=== PATIENT | female | born 1955 | race Caucasian/White ===

== ENCOUNTER 2017-03-30 15:52 | Emergency (ER) | payer OTHER ==
[~2017-03-30] VITALS: Ht 157.5 cm; Wt 71.7 kg
[~2017-03-30 15:52] MED LIST: FAMO-12 PO; FLUO60TA PO; GABA-497 PO; GEMF600T3 PO; GLIP10TA59 PO; INSLANTI SC; LIS10T PO; METF-370 PO; OMEP20CA74 PO; OXYB5TAB62 PO; POT10T PO; PRA1C PO; PRAV20TA3 PO; TRAZ50TA2 PO
[2017-03-30] MEDS ORDERED: SODIUM CHLORIDE 0.9% 1,000 ML IV ONE (16:15)
[2017-03-30 17:44] LABS: Basophils # (auto) 0 uL; Basophils % (auto) 0.6 % (0.0-2.0); CONDITION Y; Eosinophils # (auto) 0.1 uL; Eosinophils % (auto) 1.8 % (0.0-7.0); Hematocrit 35.1 % (36.0-46.0); Hemoglobin 12.1 g/dL (12.2-16.2); Lymphocytes # (auto) 2.6 uL; Lymphocytes % (auto) 32.7 % (10.0-50.0); Mean Corpuscular Hemoglobin 31.8 pg (28.0-32.0); Mean Corpuscular Hgb Conc. 34.5 g/dL (32.0-36.0); Mean Corpuscular Volume 92.2 fL (80.0-100.0); Mean Platelet Volume 5.9 fL (7.4-10.4); Monocytes # (auto) 0.6 uL; Monocytes % (auto) 7.5 % (0.0-12.0); Neutrophils # (auto) 4.6 uL; Neutrophils % (auto) 57.4 % (37.0-80.0); Platelet Count (auto) 391 10^3/uL (140-450); Red Cell Distribution Width 12.8 % (11.6-16.0); White Blood Cell 8.1 10^3/uL (4.4-10.8)
[2017-03-30 18:28] LABS: Alkaline Phosphatase 105 U/L (45-117); Anion Gap 10 (5-15); Aspartate Aminotransferase 3 U/L (15-37); BUN/Creatinine Ratio 28.1; Blood Urea Nitrogen 16 mg/dL (7-18); Calcium 8.4 mg/dL (8.5-10.1); Carbon Dioxide 23 mmol/L (21-32); Chloride 100 mmol/L (98-107); GFR African American 139 mL/min; GFR Non-African American 115 mL/min; Glucose 267 mg/dL (74-106); Sodium 133 mmol/L (136-145)
[2017-03-30 18:29] LABS: Albumin 2.7 g/dL (3.4-5.0); Bilirubin, Total 0.3 mg/dL (0.2-1.0); Total Protein 7.2 g/dL (6.4-8.2)
[2017-03-31 01:53] VITALS: BP 145/72
[2017-03-31] MEDS ORDERED: HYDROcodone-ACET 5/325MG TAB PO ONE (02:00)
== END 2017-03-31 03:41 | disposition home or self-care (01) ==
LOC: EDUNIT# 15:52 → ER 15:59
DX: S29.011A Strain of muscle and tendon of front wall of thorax, initial encounter (principal); E11.9 Type 2 diabetes mellitus without complications; K21.9 Gastro-esophageal reflux disease without esophagitis; E78.5 Hyperlipidemia, unspecified; Z90.49 Acquired absence of other specified parts of digestive tract; W18.39XA Other fall on same level, initial encounter; Y93.89 Activity, other specified; Y92.89 Other specified places as the place of occurrence of the external cause; Y99.8 Other external cause status; Z88.8 Allergy status to other drugs, medicaments and biological substances; Z79.899 Other long term (current) drug therapy
CPT/HCPCS: 36415; 71010; 80053; 82962; 84484; 85025; 93005; 96360; 99285; J7030

== ENCOUNTER 2017-11-10 21:25 | Emergency (ER) | payer MEDICAID, OTHER ==
[~2017-11-10] VITALS: Ht 162.6 cm; Wt 90.7 kg
[~2017-11-10 21:25] MED LIST changes: -GABA-497 PO; +GABA300C10 PO
[2017-11-10 22:19] LABS: Basophils # (auto) 0 uL; Basophils % (auto) 0.5 % (0.0-2.0); Eosinophils # (auto) 0 uL; Eosinophils % (auto) 0.6 % (0.0-7.0); Hematocrit 38.2 % (36.0-46.0); Hemoglobin 13.3 g/dL (12.2-16.2); Lymphocytes # (auto) 1.2 uL; Lymphocytes % (auto) 13.9 % (10.0-50.0); Mean Corpuscular Hemoglobin 31.1 pg (28.0-32.0); Mean Corpuscular Hgb Conc. 34.8 g/dL (32.0-36.0); Mean Corpuscular Volume 89.5 fL (80.0-100.0); Monocytes # (auto) 0.6 uL; Monocytes % (auto) 6.8 % (0.0-12.0); Neutrophils # (auto) 6.7 uL; Neutrophils % (auto) 78.2 % (37.0-80.0); Nucleated Red Blood Cells % 0.2 %; Platelet Count (auto) 236 10^3/uL (140-450); Red Blood Cells 4.26 10^6/uL (4.0-5.20); Red Cell Distribution Width 13.6 % (11.8-14.3); White Blood Cell 8.6 10^3/uL (4.4-10.8)
[2017-11-10 22:39] LABS: Albumin 3.5 g/dL (3.4-5.0); BUN/Creatinine Ratio 27.7; Bilirubin, Total 0.3 mg/dL (0.2-1.0); Calcium 9.2 mg/dL (8.5-10.1); Potassium 3.6 mmol/L (3.5-5.1); Total Protein 8.4 g/dL (6.4-8.2)
[2017-11-10] MEDS ORDERED: LORazepam 2MG/ML-1ML VIAL IV ONE (23:45)
[2017-11-11 03:20] VITALS: BP 142/82
== END 2017-11-11 02:30 | disposition home or self-care (01) ==
LOC: EDUNIT# 21:25 → EDBD 21:25 → ER 21:32
DX: F41.9 Anxiety disorder, unspecified (principal); E11.9 Type 2 diabetes mellitus without complications; K21.9 Gastro-esophageal reflux disease without esophagitis; F43.10 Post-traumatic stress disorder, unspecified; I95.9 Hypotension, unspecified; Z90.49 Acquired absence of other specified parts of digestive tract
CPT/HCPCS: 36415; 80053; 85025; 99284; J2060

== ENCOUNTER 2017-12-11 21:41 | Emergency (ER) | payer MEDICAID ==
[~2017-12-11] VITALS: Ht 170.2 cm; Wt 90.7 kg
[2017-12-11 22:21] LABS: Basophils # (auto) 0.1 uL; Basophils % (auto) 1.4 % (0.0-2.0); Eosinophils # (auto) 0.5 uL; Eosinophils % (auto) 5.2 % (0.0-7.0); Hematocrit 39.3 % (36.0-46.0); Hemoglobin 13.4 g/dL (12.2-16.2); Lymphocytes # (auto) 2.9 uL; Lymphocytes % (auto) 28.2 % (10.0-50.0); Mean Corpuscular Hemoglobin 30.5 pg (28.0-32.0); Mean Corpuscular Hgb Conc. 34.2 g/dL (32.0-36.0); Mean Corpuscular Volume 89.3 fL (80.0-100.0); Monocytes # (auto) 0.6 uL; Monocytes % (auto) 6.2 % (0.0-12.0); Platelet Count (auto) 250 10^3/uL (140-450); Red Cell Distribution Width 13.9 % (11.8-14.3); White Blood Cell 10.2 10^3/uL (4.4-10.8)
[2017-12-11 22:37] LABS: Alanine Aminotransferase 17 U/L (13-56); Albumin 3.2 g/dL (3.4-5.0); Anion Gap 12 (5-15); Aspartate Aminotransferase 20 U/L (15-37); BUN/Creatinine Ratio 32.2; Blood Urea Nitrogen 19 mg/dL (7-18); Calcium 8.8 mg/dL (8.5-10.1); Carbon Dioxide 25 mmol/L (21-32); Chloride 97 mmol/L (98-107); GFR African American 133 mL/min; GFR Non-African American 110 mL/min; Glucose 166 mg/dL (74-106); Potassium 3.8 mmol/L (3.5-5.1); Sodium 134 mmol/L (136-145)
[2017-12-11 22:42] LABS: Alkaline Phosphatase 122 U/L (45-117); Bilirubin, Total 0.3 mg/dL (0.2-1.0); Total Protein 7.4 g/dL (6.4-8.2)
[2017-12-12 04:07] LABS: Urine Bacteria MANY /hpf (None Seen); Urine Blood Negative /uL (Negative); Urine WBC 62 /hpf (0 - 5)
[2017-12-12] MEDS ORDERED: SODIUM CHLORIDE 0.9% 1,000 ML IV ONE (06:56)
[2017-12-12] MEDS ORDERED: cefTRIAXone 1GM/10ml IVPUSH 10 ML IV ONE (07:00)
[2017-12-12 07:45] VITALS: BP 124/56
== END 2017-12-12 09:03 | disposition home or self-care (01) ==
LOC: EDBD 21:41 → ER 21:49
DX: N39.0 Urinary tract infection, site not specified (principal); R42 Dizziness and giddiness; R51 Headache; K21.9 Gastro-esophageal reflux disease without esophagitis; E11.9 Type 2 diabetes mellitus without complications; E78.5 Hyperlipidemia, unspecified; I95.9 Hypotension, unspecified; Z90.49 Acquired absence of other specified parts of digestive tract
CPT/HCPCS: 36415; 70450; 71045; 80053; 81001; 84484; 85025; 93005; 96361; 96374

== ENCOUNTER 2018-03-20 16:33 | Inpatient (IN) | payer MEDICAID ==
[~2018-03-20] VITALS: Ht 160 cm; Wt 94.8 kg
[2018-03-20 17:17] LABS: Basophils # (auto) 0.1 uL; Basophils % (auto) 0.6 % (0.0-2.0); Eosinophils # (auto) 0.6 uL; Eosinophils % (auto) 7.3 % (0.0-7.0); Hematocrit 34.2 % (36.0-46.0); Hemoglobin 11.8 g/dL (12.2-16.2); Lymphocytes # (auto) 1.3 uL; Lymphocytes % (auto) 16.2 % (10.0-50.0); Mean Corpuscular Hemoglobin 31.3 pg (28.0-32.0); Mean Corpuscular Hgb Conc. 34.7 g/dL (32.0-36.0); Mean Corpuscular Volume 90.4 fL (80.0-100.0); Monocytes # (auto) 0.6 uL; Monocytes % (auto) 7.6 % (0.0-12.0); Neutrophils # (auto) 5.4 uL; Neutrophils % (auto) 68.3 % (37.0-80.0); Platelet Count (auto) 250 10^3/uL (140-450); Red Blood Cells 3.78 10^6/uL (4.0-5.20); Red Cell Distribution Width 15.5 % (11.8-14.3); White Blood Cell 7.9 10^3/uL (4.4-10.8)
[2018-03-20 17:37] LABS: Alanine Aminotransferase 16 U/L (13-56); Albumin 2.9 g/dL (3.4-5.0); Anion Gap 10 (5-15); Aspartate Aminotransferase 13 U/L (15-37); BUN/Creatinine Ratio 18.3; Blood Urea Nitrogen 13 mg/dL (7-18); Calcium 7.9 mg/dL (8.5-10.1); Carbon Dioxide 24 mmol/L (21-32); Chloride 104 mmol/L (98-107); GFR African American 108 mL/min; GFR Non-African American 89 mL/min; Glucose 239 mg/dL (74-106); Magnesium 1.6 mg/dL (1.6-2.6); Sodium 138 mmol/L (136-145)
[2018-03-20 17:42] LABS: Alkaline Phosphatase 119 U/L (45-117); Bilirubin, Total 0.2 mg/dL (0.2-1.0); Total Protein 7.1 g/dL (6.4-8.2)
[2018-03-20] MEDS ORDERED: IOHEXOL 350 MG/ML 100ML IJ ONE (21:42)
[2018-03-20] MEDS ORDERED: POTASSIUM CHL 20 Meq TABLET PO ONE (21:45)
[2018-03-20] MEDS: POTASSIUM CHL 20MEQ/100ML 100 ML IV SCH (22:19)
[2018-03-21] MEDS ORDERED: SODIUM CHLORIDE 0.9% 1,000 ML IV ONE (00:30)
[2018-03-21] MEDS ORDERED: ONDANSETRON HCL 4 MG/2 ML VIAL IV PRN (01:00)
[2018-03-21] MEDS ORDERED: DEXTROSE (50%) 50ML SYRG IV PRN (01:00)
[2018-03-21] MEDS ORDERED: ACETAMINOPHEN 500 MG TAB PO PRN (01:00)
[2018-03-21] MEDS ORDERED: MORPHINE SULFATE 4 MG/ML SYR/VIAL IV PRN (01:00)
[2018-03-21] MEDS ORDERED: FUROSEMIDE 40 MG/4 ML VIAL IV ONE (01:00)
[2018-03-21] MEDS ORDERED: NITROGLYCERIN 0.4 MG SL TAB SL PRN (01:00)
[2018-03-21] MEDS ORDERED: HYDROcodone-ACET 5/325MG TAB PO PRN (01:00)
[2018-03-21] MEDS: POTASSIUM CHL 20MEQ/100ML 100 ML IV SCH ×3 (01:28→15:34)
[2018-03-21] MEDS ORDERED: ALBUTEROL SULF 2.5 MG/0.5ML(0.5%) NEB SOLN NEB PRN (02:00)
[2018-03-21] MEDS ORDERED: ASPirin-EC 81 mg tab PO ONE (02:00)
[2018-03-21 04:47] LABS: Urine Bacteria NONE SEEN /hpf (None Seen); Urine Blood Negative /uL (Negative); Urine Specific Gravity 1.006 (1.001-1.035); Urine WBC <1 /hpf (0 - 5)
[2018-03-21] MEDS: ALBUTEROL SULF 2.5 MG/0.5ML(0.5%) NEB SOLN NEB SCH ×4 (06:10→23:38)
[2018-03-21] MEDS: FUROSEMIDE 40 MG/4 ML VIAL IV SCH ×2 (06:53→17:42)
[2018-03-21] MEDS: InsuLIN REG 1unit/0.01ml Soln (100units/ml) SC SCH ×4 (07:29→22:22)
[2018-03-21] MEDS: ACCU-CHEK COMFORT CURVE STRIP VI SCH ×4 (07:29→22:21)
[2018-03-21 09:00] VITALS: BP 129/55
[2018-03-21 09:03] LABS: Basophils # (auto) 0 uL; Basophils % (auto) 0.7 % (0.0-2.0); Eosinophils # (auto) 0.6 uL; Eosinophils % (auto) 8.8 % (0.0-7.0); Hematocrit 36.7 % (36.0-46.0); Hemoglobin 12.4 g/dL (12.2-16.2); Lymphocytes # (auto) 1.7 uL; Mean Corpuscular Hemoglobin 29.9 pg (28.0-32.0); Mean Corpuscular Hgb Conc. 33.7 g/dL (32.0-36.0); Mean Corpuscular Volume 88.5 fL (80.0-100.0); Monocytes # (auto) 0.4 uL; Monocytes % (auto) 6.7 % (0.0-12.0); Neutrophils # (auto) 3.6 uL; Neutrophils % (auto) 56.8 % (37.0-80.0); Nucleated Red Blood Cells % 0.1 %; Platelet Count (auto) 247 10^3/uL (140-450); Red Blood Cells 4.15 10^6/uL (4.0-5.20); Red Cell Distribution Width 15.1 % (11.8-14.3); White Blood Cell 6.4 10^3/uL (4.4-10.8)
[2018-03-21 09:13] VITALS: BP 128/68
[2018-03-21 09:21] LABS: BUN/Creatinine Ratio 13.5; Calcium 8.1 mg/dL (8.5-10.1); Potassium 3.2 mmol/L (3.5-5.1)
[2018-03-21 09:40] VITALS: BP 129/55
[2018-03-21] MEDS: clonazePAM 0.5 MG TAB PO SCH ×2 (10:24→22:21)
[2018-03-21] MEDS: GABAPENTIN 300 MG CAP PO SCH ×2 (10:25→22:21)
[2018-03-21] MEDS: FAMOTIDINE 20 MG TAB PO SCH (10:25)
[2018-03-21] MEDS: LISINOPRIL 10 MG TAB PO SCH (10:26)
[2018-03-21] MEDS: amLODIPine BESYLATE 5 MG TAB PO SCH (10:26)
[2018-03-21] MEDS ORDERED: AML5T PO (10:41)
[2018-03-21] MEDS ORDERED: ASPI81TA27 PO (10:41)
[2018-03-21] MEDS ORDERED: ARIP5TAB14 PO (10:44)
[2018-03-21] MEDS ORDERED: PNEUMOCOCCAL VACC POLYS 25 MCG/0.5 ML VIAL IM ONE (11:00)
[2018-03-21] MEDS: cefTRIAXone 1GM/10ml IVPUSH 10 ML IV SCH (11:21)
[2018-03-21] MEDS: AZITHROMYCIN 500MG/ 250ML 250 ML IV SCH (12:13)
[2018-03-21 13:00] VITALS: BP 124/56
[2018-03-21 17:00] VITALS: BP 153/44
[2018-03-21 22:00] VITALS: BP 154/61
[2018-03-21] MEDS: traZODone HCL 50 MG TAB PO SCH (22:21)
[2018-03-22 05:12] VITALS: BP 126/49
[2018-03-22 05:54] LABS: Basophils # (auto) 0.1 uL; Eosinophils # (auto) 0.4 uL; Eosinophils % (auto) 6.6 % (0.0-7.0); Hematocrit 34.6 % (36.0-46.0); Hemoglobin 12.2 g/dL (12.2-16.2); Lymphocytes # (auto) 1.7 uL; Lymphocytes % (auto) 25.2 % (10.0-50.0); Mean Corpuscular Hemoglobin 31.4 pg (28.0-32.0); Mean Corpuscular Hgb Conc. 35.2 g/dL (32.0-36.0); Mean Corpuscular Volume 89.1 fL (80.0-100.0); Monocytes # (auto) 0.6 uL; Monocytes % (auto) 8.9 % (0.0-12.0); Neutrophils # (auto) 3.9 uL; Neutrophils % (auto) 58.3 % (37.0-80.0); Nucleated Red Blood Cells % 0.1 %; Platelet Count (auto) 243 10^3/uL (140-450); Red Blood Cells 3.88 10^6/uL (4.0-5.20); Red Cell Distribution Width 15.1 % (11.8-14.3); White Blood Cell 6.7 10^3/uL (4.4-10.8)
[2018-03-22 06:05] LABS: Albumin 2.8 g/dL (3.4-5.0); Calcium 8.3 mg/dL (8.5-10.1); Potassium 3.7 mmol/L (3.5-5.1)
[2018-03-22 06:08] LABS: Bilirubin, Total 0.3 mg/dL (0.2-1.0); Total Protein 7.1 g/dL (6.4-8.2)
[2018-03-22] MEDS: FUROSEMIDE 40 MG/4 ML VIAL IV SCH ×2 (06:14→18:15)
[2018-03-22] MEDS: ACCU-CHEK COMFORT CURVE STRIP VI SCH ×4 (06:17→22:28)
[2018-03-22] MEDS: InsuLIN REG 1unit/0.01ml Soln (100units/ml) SC SCH ×4 (06:18→22:28)
[2018-03-22] MEDS: ALBUTEROL SULF 2.5 MG/0.5ML(0.5%) NEB SOLN NEB SCH ×4 (07:24→23:53)
[2018-03-22 09:00] VITALS: BP 126/62
[2018-03-22] MEDS: cefTRIAXone 1GM/10ml IVPUSH 10 ML IV SCH (09:06)
[2018-03-22] MEDS: AZITHROMYCIN 500MG/ 250ML 250 ML IV SCH (09:06)
[2018-03-22] MEDS: clonazePAM 0.5 MG TAB PO SCH ×2 (09:07→22:28)
[2018-03-22] MEDS: FAMOTIDINE 20 MG TAB PO SCH (09:07)
[2018-03-22] MEDS: GABAPENTIN 300 MG CAP PO SCH ×2 (09:07→22:28)
[2018-03-22] MEDS: amLODIPine BESYLATE 5 MG TAB PO SCH (09:08)
[2018-03-22] MEDS: LISINOPRIL 10 MG TAB PO SCH (09:09)
[2018-03-22 13:00] VITALS: BP 107/87
[2018-03-22] MEDS: metFORMIN HYDROCHLORIDE 500 MG TAB PO SCH (18:14)
[2018-03-22 22:00] VITALS: BP 145/62
[2018-03-22] MEDS: traZODone HCL 50 MG TAB PO SCH (22:28)
[2018-03-23 05:00] VITALS: BP 125/50
[2018-03-23] MEDS ORDERED: SODIUM CHLORIDE 0.9 % NEB SOLN 3ML NEB ONE (05:51)
[2018-03-23] MEDS: ACCU-CHEK COMFORT CURVE STRIP VI SCH ×3 (06:46→17:08)
[2018-03-23] MEDS: metFORMIN HYDROCHLORIDE 500 MG TAB PO SCH ×2 (06:46→17:47)
[2018-03-23] MEDS: FUROSEMIDE 40 MG/4 ML VIAL IV SCH ×2 (06:46→17:48)
[2018-03-23] MEDS: InsuLIN REG 1unit/0.01ml Soln (100units/ml) SC SCH ×3 (06:47→17:08)
[2018-03-23] MEDS: ALBUTEROL SULF 2.5 MG/0.5ML(0.5%) NEB SOLN NEB SCH ×3 (07:26→19:40)
[2018-03-23 07:55] LABS: Basophils # (auto) 0.1 uL; Basophils % (auto) 1.2 % (0.0-2.0); Eosinophils # (auto) 0.6 uL; Eosinophils % (auto) 9.4 % (0.0-7.0); Hematocrit 37.6 % (36.0-46.0); Hemoglobin 12.9 g/dL (12.2-16.2); Lymphocytes # (auto) 2.1 uL; Lymphocytes % (auto) 31.8 % (10.0-50.0); Mean Corpuscular Hemoglobin 30.6 pg (28.0-32.0); Mean Corpuscular Hgb Conc. 34.4 g/dL (32.0-36.0); Monocytes # (auto) 0.6 uL; Monocytes % (auto) 8.8 % (0.0-12.0); Neutrophils # (auto) 3.3 uL; Neutrophils % (auto) 48.8 % (37.0-80.0); Nucleated Red Blood Cells % 0.1 %; Platelet Count (auto) 274 10^3/uL (140-450); Red Blood Cells 4.23 10^6/uL (4.0-5.20); Red Cell Distribution Width 15.4 % (11.8-14.3); White Blood Cell 6.7 10^3/uL (4.4-10.8)
[2018-03-23 08:13] LABS: BUN/Creatinine Ratio 34.1; Calcium 8.8 mg/dL (8.5-10.1); Potassium 3.2 mmol/L (3.5-5.1)
[2018-03-23 09:33] VITALS: BP 105/59
[2018-03-23] MEDS: cefTRIAXone 1GM/10ml IVPUSH 10 ML IV SCH (09:43)
[2018-03-23] MEDS: AZITHROMYCIN 500MG/ 250ML 250 ML IV SCH (09:43)
[2018-03-23] MEDS: clonazePAM 0.5 MG TAB PO SCH (09:43)
[2018-03-23] MEDS: GABAPENTIN 300 MG CAP PO SCH (09:44)
[2018-03-23] MEDS: LISINOPRIL 10 MG TAB PO SCH (09:44)
[2018-03-23] MEDS: FAMOTIDINE 20 MG TAB PO SCH (09:44)
[2018-03-23] MEDS: amLODIPine BESYLATE 5 MG TAB PO SCH (09:45)
[2018-03-23] MEDS ORDERED: POTASSIUM CHL 20 Meq TABLET PO ONE (10:45)
[2018-03-23 11:32] VITALS: BP 105/59
[2018-03-23] MEDS: POTASSIUM CHL 20MEQ/100ML 100 ML IV SCH ×2 (11:50→14:19)
[2018-03-23 13:35] VITALS: BP 134/71
[2018-03-23 17:48] VITALS: BP 132/75
== END 2018-03-23 19:05 | DRG 139 ==
LOC: EDBD 16:33 → ER 16:38 → TELE 16:39 → TELE-WESTW 03-21 09:00
PROVIDERS: ADMIT Nurse Practitioner Family; ATTEND Internal Medicine
DX: J18.9 Pneumonia, unspecified organism (principal); I50.33 Acute on chronic diastolic (congestive) heart failure; G60.0 Hereditary motor and sensory neuropathy; E11.40 Type 2 diabetes mellitus with diabetic neuropathy, unspecified; I67.2 Cerebral atherosclerosis; E44.1 Mild protein-calorie malnutrition; Z68.37 Body mass index [BMI] 37.0-37.9, adult; I11.0 Hypertensive heart disease with heart failure; L03.031 Cellulitis of right toe; R91.1 Solitary pulmonary nodule; E87.6 Hypokalemia; D64.9 Anemia, unspecified; E66.9 Obesity, unspecified; F41.9 Anxiety disorder, unspecified; K21.9 Gastro-esophageal reflux disease without esophagitis; F10.20 Alcohol dependence, uncomplicated; Z90.49 Acquired absence of other specified parts of digestive tract; Z79.4 Long term (current) use of insulin; Z79.899 Other long term (current) drug therapy; Z81.8 Family history of other mental and behavioral disorders; Z82.49 Family history of ischemic heart disease and other diseases of the circulatory system; Z83.3 Family history of diabetes mellitus; Z99.3 Dependence on wheelchair; Z23 Encounter for immunization
CPT/HCPCS: 36415; 70450; 71045; 71275; 80048; 80053; 81001; 82962; 83036; 83735; 83880; 84484; 85025; 93005; 94640; 96361; 96365; 96375; 97110; 97116; 97530; J0696; J1815; J3480

== ENCOUNTER 2018-04-28 13:49 | Inpatient (IN) | payer MEDICAID ==
[~2018-04-28] VITALS: Ht 160 cm; Wt 98.0 kg
[~2018-04-28 13:49] MED LIST changes: +AML5T PO; +ARIP5TAB14 PO; +ASPI81TA27 PO; -FLUO60TA PO; -GEMF600T3 PO; +GEMF600T7 PO; +OXYB5TAB24 PO; -OXYB5TAB62 PO; -POT10T PO; -PRA1C PO
[2018-04-28] MEDS ORDERED: SODIUM CHLORIDE 0.9% 1,000 ML IV ONE (13:58)
[2018-04-28 15:52] LABS: Alanine Aminotransferase 18 U/L (13-56); Albumin 3.1 g/dL (3.4-5.0); Alkaline Phosphatase 140 U/L (45-117); Anion Gap 8 (5-15); Aspartate Aminotransferase 11 U/L (15-37); BUN/Creatinine Ratio 22.5; Bilirubin, Total 0.3 mg/dL (0.2-1.0); Blood Urea Nitrogen 16 mg/dL (7-18); Calcium 8.4 mg/dL (8.5-10.1); Carbon Dioxide 27 mmol/L (21-32); Chloride 100 mmol/L (98-107); GFR African American 108 mL/min; GFR Non-African American 89 mL/min; Glucose 373 mg/dL (74-106); Magnesium 1.8 mg/dL (1.6-2.6); Potassium 3.6 mmol/L (3.5-5.1); Sodium 135 mmol/L (136-145)
[2018-04-28 15:59] LABS: Basophils # (auto) 0 uL; Basophils % (auto) 0.3 % (0.0-2.0); Eosinophils # (auto) 0.1 uL; Eosinophils % (auto) 1.8 % (0.0-7.0); Hematocrit 37.9 % (36.0-46.0); Hemoglobin 12.8 g/dL (12.2-16.2); Lymphocytes % (auto) 13.5 % (10.0-50.0); Mean Corpuscular Hemoglobin 29.8 pg (28.0-32.0); Mean Corpuscular Hgb Conc. 33.7 g/dL (32.0-36.0); Mean Corpuscular Volume 88.5 fL (80.0-100.0); Monocytes # (auto) 0.4 uL; Monocytes % (auto) 5.2 % (0.0-12.0); Neutrophils # (auto) 6.1 uL; Neutrophils % (auto) 79.2 % (37.0-80.0); Nucleated Red Blood Cells % 0.1 %; Platelet Count (auto) 250 10^3/uL (140-450); Red Blood Cells 4.29 10^6/uL (4.0-5.20); Red Cell Distribution Width 14.9 % (11.8-14.3); White Blood Cell 7.7 10^3/uL (4.4-10.8)
[2018-04-28] MEDS ORDERED: NITROGLYCERIN 0.4 MG SL TAB SL PRN (16:30)
[2018-04-28] MEDS ORDERED: LACTULOSE 20Gm/30ML SOLN PO PRN (16:30)
[2018-04-28] MEDS ORDERED: PROMETHAZINE HCL 25 MG/ML 1ML IV PRN (16:30)
[2018-04-28] MEDS ORDERED: DEXTROSE (50%) 50ML SYRG IV PRN (16:30)
[2018-04-28] MEDS ORDERED: HYDROcodone-ACET 5/325MG TAB PO PRN (16:30)
[2018-04-28] MEDS ORDERED: MORPHINE SULF INJ 2 MG/ML SYRINGE 1ML IV PRN ×2 (16:30)
[2018-04-28] MEDS ORDERED: ACETAMINOPHEN 500 MG TAB PO PRN (16:30)
[2018-04-28] MEDS ORDERED: LABETALOL HCL 5 MG/ML ML 20ML VIAL IV PRN (16:30)
[2018-04-28] MEDS ORDERED: TEMAZEPAM 15 MG CAP PO PRN (16:30)
[2018-04-28] MEDS ORDERED: LORazepam 0.5 MG TAB PO PRN (16:30)
[2018-04-28 16:37] LABS: Urine WBC None Seen /hpf (0 - 5)
[2018-04-28 17:13] LABS: Urine Bacteria FEW /hpf (None Seen); Urine Blood Negative /uL (Negative); Urine Specific Gravity 1.009 (1.001-1.035)
[2018-04-28] MEDS ORDERED: glipiZIDE 5 MG TAB PO SCH (17:30)
[2018-04-28 17:43] LABS: Cholesterol 190 mg/dL (< 200); Creatine Kinase IFCC 179 U/L (26-192); HDL Cholesterol 61 mg/dL (40-59); LDL Cholesterol 117 mg/dL (< 100); Triglycerides 155 mg/dL (< 150)
[2018-04-28 17:51] LABS: Folate (Folic Acid) 13.75 ng/mL (5.38-24)
[2018-04-28] MEDS: INSULIN LANTUS (GLARGINE) 1 /0.01ml (100units/ml) SC SCH (18:47)
[2018-04-28] MEDS: ACCU-CHEK COMFORT CURVE STRIP VI SCH (21:10)
[2018-04-28] MEDS: InsuLIN REG 1unit/0.01ml Soln (100units/ml) SC SCH (21:10)
[2018-04-28 22:00] VITALS: BP 134/69
[2018-04-28] MEDS: Aripiprazole (Abilify) 5 MG PO SCH (22:00)
[2018-04-28] MEDS: CLINDAMYCIN 600MG IV 50 ML IV SCH (22:21)
[2018-04-28] MEDS: traZODone HCL 50 MG TAB PO SCH (22:22)
[2018-04-28] MEDS: GABAPENTIN 300 MG CAP PO SCH (22:22)
[2018-04-28] MEDS: CARVEDILOL 3.125 MG TAB PO SCH (22:22)
[2018-04-28] MEDS: PANTOPRAZOLE 40 MG TAB PO SCH (22:23)
[2018-04-28] MEDS: PRAVASTATIN SODIUM 20 MG TAB PO SCH (22:23)
[2018-04-28] MEDS: OXYBUTYNIN CHL 5 MG TAB PO SCH (22:23)
[2018-04-28] MEDS: GEMFIBROZIL 600 MG TAB PO SCH (22:24)
[2018-04-29] MEDS: ACCU-CHEK COMFORT CURVE STRIP VI SCH ×6 (00:12→22:00)
[2018-04-29] MEDS: InsuLIN REG 1unit/0.01ml Soln (100units/ml) SC SCH ×6 (00:13→21:30)
[2018-04-29 04:54] VITALS: BP 120/38
[2018-04-29] MEDS: CLINDAMYCIN 600MG IV 50 ML IV SCH ×3 (06:00→21:27)
[2018-04-29 08:30] VITALS: BP_SYST 102; BP_DIAS 38; BP_DIAS 98
[2018-04-29 09:30] VITALS: BP 102/98
[2018-04-29] MEDS ORDERED: FAMOTIDINE 20 MG TAB PO SCH (10:00)
[2018-04-29] MEDS: FUROSEMIDE 40 MG/4 ML VIAL IV SCH (10:00)
[2018-04-29] MEDS ORDERED: amLODIPine BESYLATE 5 MG TAB PO SCH (10:00)
[2018-04-29] MEDS: CARVEDILOL 3.125 MG TAB PO SCH ×2 (10:00→21:28)
[2018-04-29] MEDS ORDERED: LISINOPRIL 10 MG TAB PO SCH (10:00)
[2018-04-29] MEDS: cefTRIAXone 1GM/10ml IVPUSH 10 ML IV SCH (10:23)
[2018-04-29] MEDS: OXYBUTYNIN CHL 5 MG TAB PO SCH ×2 (10:23→21:27)
[2018-04-29] MEDS: PANTOPRAZOLE 40 MG TAB PO SCH ×2 (10:24→21:29)
[2018-04-29] MEDS: GABAPENTIN 300 MG CAP PO SCH ×2 (10:24→21:28)
[2018-04-29] MEDS: ASPirin-EC 81 mg tab PO SCH (10:24)
[2018-04-29] MEDS: GEMFIBROZIL 600 MG TAB PO SCH ×2 (10:25→21:28)
[2018-04-29] MEDS: POTASSIUM CHL 20 Meq TABLET PO SCH (10:25)
[2018-04-29] MEDS: ENOXAPARIN SOD 40 MG/0.4 ML SYRINGE SC SCH (10:26)
[2018-04-29] MEDS: LISINOPRIL 10 MG TAB PO SCH (13:53)
[2018-04-29 17:19] VITALS: BP 121/42
[2018-04-29] MEDS: INSULIN LANTUS (GLARGINE) 1 /0.01ml (100units/ml) SC SCH (18:13)
[2018-04-29] MEDS ORDERED: LORazepam 2MG/ML-1ML VIAL IV PRN (20:45)
[2018-04-29] MEDS: traZODone HCL 50 MG TAB PO SCH (21:28)
[2018-04-29] MEDS: PRAVASTATIN SODIUM 20 MG TAB PO SCH (21:29)
[2018-04-29 22:00] VITALS: BP 139/57
[2018-04-29] MEDS: Aripiprazole (Abilify) 5 MG PO SCH (22:00)
[2018-04-30] VITALS (7 sets, daily range): BP systolic 139–160; BP diastolic 58–79
[2018-04-30] MEDS: CLINDAMYCIN 600MG IV 50 ML IV SCH ×3 (05:45→21:35)
[2018-04-30] MEDS: ACCU-CHEK COMFORT CURVE STRIP VI SCH ×4 (06:23→21:37)
[2018-04-30] MEDS: InsuLIN REG 1unit/0.01ml Soln (100units/ml) SC SCH ×4 (06:23→21:37)
[2018-04-30 06:44] LABS: Basophils # (auto) 0.1 uL; Basophils % (auto) 1.1 % (0.0-2.0); Eosinophils # (auto) 0.2 uL; Eosinophils % (auto) 3.7 % (0.0-7.0); Hematocrit 36.3 % (36.0-46.0); Hemoglobin 12.5 g/dL (12.2-16.2); Lymphocytes # (auto) 1.6 uL; Lymphocytes % (auto) 24.3 % (10.0-50.0); Mean Corpuscular Hemoglobin 30.6 pg (28.0-32.0); Mean Corpuscular Hgb Conc. 34.5 g/dL (32.0-36.0); Mean Corpuscular Volume 88.7 fL (80.0-100.0); Monocytes # (auto) 0.5 uL; Monocytes % (auto) 8.2 % (0.0-12.0); Neutrophils % (auto) 62.7 % (37.0-80.0); Nucleated Red Blood Cells % 0.1 %; Platelet Count (auto) 217 10^3/uL (140-450); Red Cell Distribution Width 14.6 % (11.8-14.3); White Blood Cell 6.4 10^3/uL (4.4-10.8)
[2018-04-30 06:58] LABS: Calcium 8.6 mg/dL (8.5-10.1); Potassium 3.8 mmol/L (3.5-5.1)
[2018-04-30] MEDS: cefTRIAXone 1GM/10ml IVPUSH 10 ML IV SCH (09:24)
[2018-04-30] MEDS: FUROSEMIDE 40 MG/4 ML VIAL IV SCH (09:24)
[2018-04-30] MEDS: ASPirin-EC 81 mg tab PO SCH (09:25)
[2018-04-30] MEDS: GABAPENTIN 300 MG CAP PO SCH ×2 (09:25→21:35)
[2018-04-30] MEDS: PANTOPRAZOLE 40 MG TAB PO SCH ×2 (09:26→21:35)
[2018-04-30] MEDS: GEMFIBROZIL 600 MG TAB PO SCH ×2 (09:26→21:36)
[2018-04-30] MEDS: OXYBUTYNIN CHL 5 MG TAB PO SCH ×2 (09:26→21:36)
[2018-04-30] MEDS: POTASSIUM CHL 20 Meq TABLET PO SCH (09:26)
[2018-04-30] MEDS: LISINOPRIL 10 MG TAB PO SCH (09:27)
[2018-04-30] MEDS: CARVEDILOL 3.125 MG TAB PO SCH ×2 (09:29→21:36)
[2018-04-30] MEDS: ENOXAPARIN SOD 40 MG/0.4 ML SYRINGE SC SCH (09:29)
[2018-04-30] MEDS: INSULIN LANTUS (GLARGINE) 1 /0.01ml (100units/ml) SC SCH (17:41)
[2018-04-30] MEDS: traZODone HCL 50 MG TAB PO SCH (21:35)
[2018-04-30] MEDS: PRAVASTATIN SODIUM 20 MG TAB PO SCH (21:35)
[2018-04-30] MEDS: Aripiprazole (Abilify) 5 MG PO SCH (21:42)
[2018-05-01 05:00] VITALS: BP 151/57
[2018-05-01] MEDS: CLINDAMYCIN 600MG IV 50 ML IV SCH ×3 (06:03→22:08)
[2018-05-01] MEDS: ACCU-CHEK COMFORT CURVE STRIP VI SCH ×4 (06:29→22:08)
[2018-05-01] MEDS: InsuLIN REG 1unit/0.01ml Soln (100units/ml) SC SCH ×4 (06:29→22:09)
[2018-05-01 07:04] LABS: Basophils # (auto) 0 uL; Basophils % (auto) 0.6 % (0.0-2.0); Eosinophils # (auto) 0.3 uL; Eosinophils % (auto) 4.6 % (0.0-7.0); Hematocrit 35.5 % (36.0-46.0); Hemoglobin 12.3 g/dL (12.2-16.2); Lymphocytes % (auto) 30.4 % (10.0-50.0); Mean Corpuscular Hemoglobin 30.6 pg (28.0-32.0); Mean Corpuscular Hgb Conc. 34.8 g/dL (32.0-36.0); Monocytes # (auto) 0.6 uL; Monocytes % (auto) 8.6 % (0.0-12.0); Neutrophils # (auto) 3.7 uL; Neutrophils % (auto) 55.8 % (37.0-80.0); Nucleated Red Blood Cells % 0.1 %; Platelet Count (auto) 231 10^3/uL (140-450); Red Blood Cells 4.03 10^6/uL (4.0-5.20); Red Cell Distribution Width 14.8 % (11.8-14.3); White Blood Cell 6.6 10^3/uL (4.4-10.8)
[2018-05-01 07:41] LABS: BUN/Creatinine Ratio 26.2; Calcium 8.9 mg/dL (8.5-10.1); Potassium 4.1 mmol/L (3.5-5.1)
[2018-05-01 08:30] VITALS: BP 116/70
[2018-05-01 08:36] VITALS: BP 116/70
[2018-05-01] MEDS: cefTRIAXone 1GM/10ml IVPUSH 10 ML IV SCH (09:37)
[2018-05-01] MEDS: ENOXAPARIN SOD 40 MG/0.4 ML SYRINGE SC SCH (09:37)
[2018-05-01] MEDS: ASPirin-EC 81 mg tab PO SCH (09:37)
[2018-05-01] MEDS: PANTOPRAZOLE 40 MG TAB PO SCH ×2 (09:37→22:07)
[2018-05-01] MEDS: GABAPENTIN 300 MG CAP PO SCH ×2 (09:38→22:07)
[2018-05-01] MEDS: OXYBUTYNIN CHL 5 MG TAB PO SCH ×2 (09:38→22:07)
[2018-05-01] MEDS: GEMFIBROZIL 600 MG TAB PO SCH ×2 (09:38→22:07)
[2018-05-01] MEDS: POTASSIUM CHL 20 Meq TABLET PO SCH (09:38)
[2018-05-01] MEDS: CARVEDILOL 3.125 MG TAB PO SCH ×2 (09:38→22:08)
[2018-05-01] MEDS: FUROSEMIDE 40 MG/4 ML VIAL IV SCH (11:00)
[2018-05-01 12:38] VITALS: BP 118/49
[2018-05-01] MEDS: LISINOPRIL 10 MG TAB PO SCH (16:00)
[2018-05-01 16:47] VITALS: BP 117/74
[2018-05-01] MEDS: INSULIN LANTUS (GLARGINE) 1 /0.01ml (100units/ml) SC SCH (17:23)
[2018-05-01] MEDS: Aripiprazole (Abilify) 5 MG PO SCH (22:00)
[2018-05-01 22:03] VITALS: BP 165/79
[2018-05-01] MEDS: traZODone HCL 50 MG TAB PO SCH (22:07)
[2018-05-01] MEDS: PRAVASTATIN SODIUM 20 MG TAB PO SCH (22:07)
[2018-05-02 04:56] VITALS: BP 112/73
[2018-05-02] MEDS: CLINDAMYCIN 600MG IV 50 ML IV SCH (05:55)
[2018-05-02] MEDS: ACCU-CHEK COMFORT CURVE STRIP VI SCH ×2 (06:50→12:01)
[2018-05-02] MEDS: InsuLIN REG 1unit/0.01ml Soln (100units/ml) SC SCH ×2 (06:50→12:01)
[2018-05-02 09:00] VITALS: BP 109/52
[2018-05-02] MEDS: cefTRIAXone 1GM/10ml IVPUSH 10 ML IV SCH (09:00)
[2018-05-02] MEDS: FUROSEMIDE 40 MG/4 ML VIAL IV SCH (10:00)
[2018-05-02] MEDS: ASPirin-EC 81 mg tab PO SCH (10:21)
[2018-05-02] MEDS: PANTOPRAZOLE 40 MG TAB PO SCH (10:22)
[2018-05-02] MEDS: LISINOPRIL 10 MG TAB PO SCH (10:23)
[2018-05-02] MEDS: CARVEDILOL 3.125 MG TAB PO SCH (10:25)
[2018-05-02] MEDS: OXYBUTYNIN CHL 5 MG TAB PO SCH (10:25)
[2018-05-02] MEDS: POTASSIUM CHL 20 Meq TABLET PO SCH (10:25)
[2018-05-02] MEDS: GABAPENTIN 300 MG CAP PO SCH (10:26)
[2018-05-02] MEDS: ENOXAPARIN SOD 40 MG/0.4 ML SYRINGE SC SCH (10:27)
[2018-05-02] MEDS: GEMFIBROZIL 600 MG TAB PO SCH (10:27)
== END 2018-05-02 13:00 | DRG 48 ==
LOC: EDBD 13:49 → ER 13:49 → TELE 13:50 → TELE-WESTW 22:00
PROVIDERS: ADMIT Internal Medicine; ATTEND Internal Medicine
DX: E11.42 Type 2 diabetes mellitus with diabetic polyneuropathy (principal); E11.51 Type 2 diabetes mellitus with diabetic peripheral angiopathy without gangrene; E44.0 Moderate protein-calorie malnutrition; L03.116 Cellulitis of left lower limb; I11.0 Hypertensive heart disease with heart failure; I50.9 Heart failure, unspecified; E11.65 Type 2 diabetes mellitus with hyperglycemia; E66.01 Morbid (severe) obesity due to excess calories; K21.9 Gastro-esophageal reflux disease without esophagitis; E78.5 Hyperlipidemia, unspecified; G40.909 Epilepsy, unspecified, not intractable, without status epilepticus; G60.0 Hereditary motor and sensory neuropathy; F41.1 Generalized anxiety disorder; Z68.38 Body mass index [BMI] 38.0-38.9, adult; Z79.899 Other long term (current) drug therapy; Z79.82 Long term (current) use of aspirin; Z81.8 Family history of other mental and behavioral disorders; Z82.49 Family history of ischemic heart disease and other diseases of the circulatory system; Z86.73 Personal history of transient ischemic attack (TIA), and cerebral infarction without residual deficits; Z90.710 Acquired absence of both cervix and uterus; Z83.3 Family history of diabetes mellitus; Z90.49 Acquired absence of other specified parts of digestive tract; Z91.018 Allergy to other foods
CPT/HCPCS: 36415; 70450; 70551; 71045; 80048; 80053; 80061; 81001; 82010; 82550; 82607; 82746; 82962; 83036; 83735; 84443; 84484; 85025; 85652; 93306; 93886; 94761; 95819; 97116; 97163; J0696; J1815; J3490